=== PATIENT | female | born 1940 | race Caucasian/White ===

== ENCOUNTER 2024-01-02 08:08 | Inpatient (IN) | payer BC, MEDICARE, OTHER ==
[2023-12-26 10:30] LABS: BILIRUBIN,URINE NEGATIVE (Neg); CLARITY,URINE CLEAR (Clear); COLOR,URINE YELLOW (Yellow); GLUCOSE, URINE NEGATIVE (Neg); KETONES,URINE NEGATIVE (Neg); LEUKOCYTE ESTERASE ,URINE SMALL (Neg); NITRITES, URINE NEGATIVE (Neg); OCCULT BLOOD,URINE NEGATIVE (Neg); PH,URINE 6.5 (4.8-8.0); PROTEIN,URINE NEGATIVE (Neg); UROBILINOGEN,URINE 0.2 E.U/dL (0.2-1.0)
[2023-12-26 10:36] LABS: BASOPHILS # (AUTO) 0.1 X10'3 (0-0.2); BASOPHILS % (AUTO) 1.3 % (0-1); EOSINOPHILS # (AUTO) 0.2 X10'3 (0-0.9); LYMPHOCYTES # (AUTO) 2.4 X10'3 (1.1-4.8); LYMPHOCYTES % (AUTO) 23.9 % (21-51); MEAN CORPUSCULAR HEMOGLOBIN 28.8 PG (27.0-31.0); MEAN CORPUSCULAR VOLUME 87.4 FL (78-98); MEAN PLATELET VOLUME 7.1 FL (7.4-10.4); MONOCYTES # (AUTO) 0.8 X10'3 (0-0.9); MONOCYTES % (AUTO) 7.7 % (2-12); NEUTROPHILS # (AUTO) 6.6 X10'3 (1.8-7.7); NEUTROPHILS % (AUTO) 65.1 % (42-75); PRE OP HEMATOCRIT 50.3 % (35.0-45.0); PRE OP HEMOGLOBIN 16.6 g/dL (12.0-16.0); PRE OP PLATELET COUNT 372 X10'3 (140-440); PRE OP WHITE BLOOD COUNT 10.2 10'3 (4.8-10.8); RED BLOOD COUNT 5.76 X10'6 (4.20-5.60); RED CELL DISTRIBUTION WIDTH 14.7 % (11.5-14.5)
[2023-12-26 10:48] LABS: UA COLLECTION TYPE CLN CATCH MIDSTREAM
[2023-12-26 10:49] LABS: BACTERIA,URINE 1+ /HPF (Neg); MUCUS STRANDS FEW /LPF (Neg); SQUAMOUS EPITHELIAL CELL,UR FEW /LPF (FEW)
[2023-12-26 11:02] LABS: ALBUMIN/GLOBULIN RATIO 1.1 (1.1-1.5); ALKALINE PHOSPHATASE 78 IU/L (46-116); BLOOD UREA NITROGEN 13 MG/DL (7-18); BUN/CREATININE RATIO 19.4 (10.0-20.0); CALCIUM 9.1 MG/DL (8.5-10.1); CHLORIDE 101 MMOL/L (99-107); CREATININE 0.67 MG/DL (0.40-0.90); PRE OP ALT 11 U/L (30-65); PRE OP ANION GAP 3 (8-16); PRE OP AST 18 U/L (10-37); PRE OP BILIRUB, TOTAL 0.8 MG/DL (0.0-1.0); PRE OP GLUCOSE 126 MG/DL (70-104); PRE OP POTASSIUM 4.1 MMOL/L (3.4-5.1); PRE OP SODIUM 136 MMOL/L (135-145); THYROID STIMULATING HORMONE 1.55 ulU/ml (0.34-4.50); TOTAL CARBON DIOXIDE 31.7 MMOL/L (24-32); TOTAL PROTEIN 7.7 G/DL (6.4-8.2); eGFR 84 ML/MIN
[2023-12-26 11:13] LABS: HEMOGLOBIN A1C 6.7 % (4.5-6.2)
[2023-12-26 11:26] LABS: PRE OP PROTIME 10.9 SECONDS (9.0-12.0)
[2023-12-29 07:18] LABS: ABG HCO3 23.4 mmol/L (21.0-28.0); ABG OXYGEN SATURATION 93.2 % (94.0-98.0); ABG PCO2 (T) 35.2 mmHg (32.0-45.0); ABG PH (T) 7.441 (7.350-7.450); ABG PO2 (T) 69.1 mmHg (83.0-108.0); ALLEN'S TEST POSITIVE; FCOHb 0.4 % (0.5-1.5); FHHb 6.8 % (0.0-5.0); FMetHb 0.1 % (0.0-1.5); FO2Hb 92.7 % (94.0-98.0); MODE ROOM AIR; TOTAL HEMOGLOBIN 17.2 G/dl (12.0-16.0)
[2024-01-02] VITALS (15 sets, daily range): BP systolic 112–150; BP diastolic 42–102; PULSE 61–90; RESP 13–17; TEMP 98; O2SAT 92–99
[~2024-01-02] VITALS: Ht 157.5 cm; Wt 78.0 kg
[2024-01-02] MEDS: vancomycin/NS 1 GM in NS 250 ML IV ONE (05:30)
[~2024-01-02 08:08] MED LIST: BIFI10.5 PO; CALC-1215 PO; CYAN500T71 PO; GREE250C PO; KEN0.1O TOP; LEVO75TA57 PO; LORA-949 PO; METF750T46 PO; SIMV-42 PO
[2024-01-02] MEDS: famotidine 20mg tablet PO ONE (09:37)
[2024-01-02] MEDS: ringers solution, lacted 1,000 ML IV SCH (09:42)
[2024-01-02] MEDS: BUPIVAcaine 2.5mg/ml inj 50ml vial (contains preservative) ONE ×2 (12:46→12:50)
[2024-01-02] MEDS: NORepinephrine 8mg/ 250ml NS 250 ML IV ONE (12:46)
[2024-01-02] MEDS: BUPIVACAINE liposomal/PF 13.3 MG/ML vial IM ONE ×2 (12:47→12:50)
[2024-01-02] MEDS: diphenhydrAMINE 50 mg/ml inj ONE (13:19)
[2024-01-02] MEDS ORDERED: sevoflurane 250ml liquid IH ONE (14:46)
[2024-01-02] MEDS ORDERED: midazolam 1 mg/ML 2ml injection ONE (14:48)
[2024-01-02] MEDS ORDERED: fentaNYL /PF 50mcg/ml 5ml ampule ONE (14:49)
[2024-01-02] MEDS ORDERED: propofol inj 20 ML IV ONE (14:53)
[2024-01-02] MEDS ORDERED: albumin (Human) 5% 250ml 250 ML IV ONE ×2 (15:31→18:06)
[2024-01-02] MEDS ORDERED: acetaminophen 1,000mg/100ml IV 100 ML IV ONE (17:28)
[2024-01-02] MEDS ORDERED: dexamethasone sod phosphate 4mg/ml inj. ONE (17:28)
[2024-01-02] MEDS: BUPIVAcaine 2.5mg/ml inj 50ml vial (contains preservative) IJ ONE (18:10)
[2024-01-02] MEDS ORDERED: sugammadex 200mg/2ml injection IV ONE (18:31)
[2024-01-02] MEDS ORDERED: metoclopramide 5 mg/ml inj IV PRN (18:40)
[2024-01-02] MEDS ORDERED: albuterol 2.5 MG/3 ML nebule NEB PRN (18:40)
[2024-01-02] MEDS ORDERED: HYDROcodone/acetaminophen 10/325mg tab PO PRN (18:40)
[2024-01-02] MEDS: INDOCYANINE GREEN 25 MG/10 ML VIAL IV ONE ×2 (18:46→18:47)
[2024-01-02] MEDS: ketorolac trometh 30MG/ML vial 30 MG/ML VIAL ONE (18:46)
[2024-01-02] MEDS: ROPIVAcaine 0.5% (5mg/ml) 30ml vial ONE (18:47)
[2024-01-02] MEDS: ketorolac trometh 15mg/ml vial 15 MG/ML ML IV SCH (18:48)
[2024-01-02 18:57] LABS: ABG BASE EXCESS -6.1 mmol/L (-2.0-3.0); ABG HCO3 21.6 mmol/L (21.0-28.0); ABG OXYGEN SATURATION 97.1 % (94.0-98.0); ABG PCO2 (T) 46.7 mmHg (32.0-45.0); ABG PH (T) 7.274 (7.350-7.450); ABG PO2 (T) 93.6 mmHg (83.0-108.0); FCOHb 0.7 % (0.5-1.5); FHHb 2.9 % (0.0-5.0); FMetHb 0.1 % (0.0-1.5); FO2Hb 96.3 % (94.0-98.0); PATIENT TEMPERATURE 35.2; TOTAL HEMOGLOBIN 16.5 G/dl (12.0-16.0)
[2024-01-02] MEDS ORDERED: vancomycin/NS 1 GM ADD-VANTAGE 250 ML IV SCH (20:00)
[2024-01-02] MEDS: gabapentin 300mg capsule PO SCH (20:00)
[2024-01-02] MEDS: linezolid 600mg/300ml PREMIX 300 ML IV SCH (20:37)
[2024-01-02] MEDS: potassium cl 20mEq in 1/2 NS 1,000 ML IV SCH (20:37)
[2024-01-02 20:49] LABS: ABG BASE EXCESS -4.4 mmol/L (-2.0-3.0); ABG HCO3 22.2 mmol/L (21.0-28.0); ABG OXYGEN SATURATION 93.6 % (94.0-98.0); ABG PCO2 (T) 43.2 mmHg (32.0-45.0); ABG PH (T) 7.321 (7.350-7.450); FCOHb 0.9 % (0.5-1.5); FHHb 6.3 % (0.0-5.0); FMetHb 0.1 % (0.0-1.5); FO2Hb 92.7 % (94.0-98.0); PATIENT TEMPERATURE 35.4; TOTAL HEMOGLOBIN 16.3 G/dl (12.0-16.0)
[2024-01-02] MEDS: morphine 2 MG/ML inj. syringe IV PRN (22:08)
[2024-01-03] VITALS (23 sets, daily range): BP systolic 92–122; BP diastolic 44–57; PULSE 54–71; RESP 9–19; O2SAT 93–98
[2024-01-03 02:38] LABS: BASOPHILS % (AUTO) 0.2 % (0-1); EOSINOPHILS % (AUTO) 0 % (0-6); HEMATOCRIT 46.8 % (35.0-45.0); HEMOGLOBIN 15.1 g/dl (12.0-16.0); LYMPHOCYTES # (AUTO) 0.7 X10'3 (1.1-4.8); LYMPHOCYTES % (AUTO) 5.9 % (21-51); MEAN CORPUSCULAR HEMOGLOBIN 28.3 PG (27.0-31.0); MEAN CORPUSCULAR HGB CONC 32.2 g/dL (33.0-36.5); MEAN CORPUSCULAR VOLUME 87.8 FL (78-98); MEAN PLATELET VOLUME 7.5 FL (7.4-10.4); MONOCYTES # (AUTO) 0.5 X10'3 (0-0.9); MONOCYTES % (AUTO) 4.2 % (2-12); NEUTROPHILS # (AUTO) 11.3 X10'3 (1.8-7.7); NEUTROPHILS % (AUTO) 89.7 % (42-75); PLATELET COUNT 322 X10'3 (140-440); RED BLOOD COUNT 5.33 X10'6 (4.20-5.60); RED CELL DISTRIBUTION WIDTH 14.8 % (11.5-14.5); WHITE BLOOD COUNT 12.6 X10'3 (4.5-11.0)
[2024-01-03 02:56] LABS: ALANINE AMINOTRANSFERASE 24 U/L (12-78); ALBUMIN 3.4 G/DL (3.4-5.0); ALBUMIN/GLOBULIN RATIO 1.2 (1.1-1.5); ALKALINE PHOSPHATASE 64 IU/L (46-116); ANION GAP 5 (8-16); ASPARTATE AMINO TRANSFERASE 27 U/L (10-37); BILIRUBIN,TOTAL 0.8 MG/DL (0.1-1.0); BLOOD UREA NITROGEN 11 MG/DL (7-18); BUN/CREATININE RATIO 15.5 (10.0-20.0); CALCIUM 7.7 MG/DL (8.5-10.1); CHLORIDE 104 MMOL/L (99-107); CREATININE 0.71 MG/DL (0.40-0.90); GLUCOSE 204 MG/DL (70-104); MAGNESIUM 1.5 MG/DL (1.5-2.4); PHOSPHORUS 4.3 MG/DL (2.3-4.5); POTASSIUM 4.4 MMOL/L (3.5-5.1); SODIUM 135 MMOL/L (135-145); TOTAL CARBON DIOXIDE 25.9 MMOL/L (24-32); TOTAL PROTEIN 6.2 G/DL (6.4-8.2); eCRCL 47 ML/MIN; eGFR 79 ML/MIN
[2024-01-03] MEDS: HYDROcodone/acetaminophen 10/325mg tab PO PRN (05:32)
[2024-01-03] MEDS: furosemide 20 MG/2 ML vial IV ONE (12:17)
[2024-01-03] MEDS: magnesium sulf-water 4G/100mL 100 ML IV ONE (13:25)
[2024-01-03] MEDS: ondansetron/PF 4mg/2ml inj IV PRN (15:10)
[2024-01-03] MEDS ORDERED: DEXTROSE 15 GM of carb/4 tabs (each vial/BOTTLE has 4 tablets) PO PRN ×2 (16:30)
[2024-01-03] MEDS ORDERED: dextrose 50%-water 50ml dispensing syringe IV PRN ×2 (16:30)
[2024-01-03] MEDS ORDERED: glucagon, human recombinant 1mg kit SUBCUT PRN (16:30)
[2024-01-03] MEDS: INSULIN LISPRO 100 UNIT/ML INSULN.PEN MULTI-DOSE SQ SCH (17:00)
[2024-01-03] MEDS: magnesium oxide 400mg tablet PO SCH (20:01)
[2024-01-04] VITALS (27 sets, daily range): BP systolic 89–124; BP diastolic 41–72; PULSE 54–76; RESP 9–18; O2SAT 88–96
[2024-01-04 06:43] LABS: ALANINE AMINOTRANSFERASE 23 U/L (12-78); ALBUMIN 2.9 G/DL (3.4-5.0); ALKALINE PHOSPHATASE 56 IU/L (46-116); ANION GAP 4 (8-16); ASPARTATE AMINO TRANSFERASE 24 U/L (10-37); BILIRUBIN,TOTAL 0.5 MG/DL (0.1-1.0); BLOOD UREA NITROGEN 13 MG/DL (7-18); BUN/CREATININE RATIO 19.1 (10.0-20.0); CALCIUM 7.9 MG/DL (8.5-10.1); CHLORIDE 100 MMOL/L (99-107); CREATININE 0.68 MG/DL (0.40-0.90); GLUCOSE 128 MG/DL (70-104); MAGNESIUM 2.4 MG/DL (1.5-2.4); PHOSPHORUS 3.1 MG/DL (2.3-4.5); POTASSIUM 4.4 MMOL/L (3.5-5.1); SODIUM 132 MMOL/L (135-145); TOTAL CARBON DIOXIDE 27.8 MMOL/L (24-32); TOTAL PROTEIN 5.7 G/DL (6.4-8.2); eCRCL 50 ML/MIN; eGFR 83 ML/MIN
[2024-01-04 06:45] LABS: BASOPHILS # (AUTO) 0.1 X10'3 (0-0.2); BASOPHILS % (AUTO) 0.4 % (0-1); EOSINOPHILS # (AUTO) 0.2 X10'3 (0-0.9); EOSINOPHILS % (AUTO) 1.5 % (0-6); HEMATOCRIT 42.8 % (35.0-45.0); HEMOGLOBIN 13.9 g/dl (12.0-16.0); LYMPHOCYTES # (AUTO) 1.2 X10'3 (1.1-4.8); LYMPHOCYTES % (AUTO) 9.6 % (21-51); MEAN CORPUSCULAR HEMOGLOBIN 28.7 PG (27.0-31.0); MEAN CORPUSCULAR HGB CONC 32.6 g/dL (33.0-36.5); MEAN CORPUSCULAR VOLUME 88.2 FL (78-98); MEAN PLATELET VOLUME 7.6 FL (7.4-10.4); MONOCYTES # (AUTO) 0.8 X10'3 (0-0.9); MONOCYTES % (AUTO) 6.6 % (2-12); NEUTROPHILS # (AUTO) 10.3 X10'3 (1.8-7.7); NEUTROPHILS % (AUTO) 81.9 % (42-75); PLATELET COUNT 318 X10'3 (140-440); RED BLOOD COUNT 4.85 X10'6 (4.20-5.60); RED CELL DISTRIBUTION WIDTH 14.8 % (11.5-14.5); WHITE BLOOD COUNT 12.5 X10'3 (4.5-11.0)
[2024-01-04] MEDS: acetaminophen 325mg tablet PO PRN (14:14)
[2024-01-04] MEDS: traMADol 50MG tablet PO PRN (19:38)
[2024-01-04] MEDS: magnesium hydroxide 30ml (MOM) UD suspension PO SCH (19:40)
[2024-01-05] VITALS (31 sets, daily range): BP systolic 61–133; BP diastolic 36–61; PULSE 50–77; RESP 11–18; O2SAT 88–98
[2024-01-05 05:41] LABS: BASOPHILS # (AUTO) 0.1 X10'3 (0-0.2); BASOPHILS % (AUTO) 0.5 % (0-1); EOSINOPHILS # (AUTO) 0.3 X10'3 (0-0.9); EOSINOPHILS % (AUTO) 3.2 % (0-6); HEMATOCRIT 43.2 % (35.0-45.0); HEMOGLOBIN 14.1 g/dl (12.0-16.0); LYMPHOCYTES # (AUTO) 1.6 X10'3 (1.1-4.8); LYMPHOCYTES % (AUTO) 14.1 % (21-51); MEAN CORPUSCULAR HEMOGLOBIN 28.8 PG (27.0-31.0); MEAN CORPUSCULAR HGB CONC 32.7 g/dL (33.0-36.5); MEAN CORPUSCULAR VOLUME 88.1 FL (78-98); MEAN PLATELET VOLUME 7.6 FL (7.4-10.4); MONOCYTES # (AUTO) 0.8 X10'3 (0-0.9); MONOCYTES % (AUTO) 7.7 % (2-12); NEUTROPHILS # (AUTO) 8.2 X10'3 (1.8-7.7); NEUTROPHILS % (AUTO) 74.5 % (42-75); PLATELET COUNT 351 X10'3 (140-440); RED CELL DISTRIBUTION WIDTH 15.2 % (11.5-14.5)
[2024-01-05 05:48] LABS: ALANINE AMINOTRANSFERASE 27 U/L (12-78); ALBUMIN 2.8 G/DL (3.4-5.0); ALBUMIN/GLOBULIN RATIO 0.9 (1.1-1.5); ALKALINE PHOSPHATASE 62 IU/L (46-116); ANION GAP 3 (8-16); ASPARTATE AMINO TRANSFERASE 28 U/L (10-37); BILIRUBIN,TOTAL 0.5 MG/DL (0.1-1.0); BLOOD UREA NITROGEN 15 MG/DL (7-18); BUN/CREATININE RATIO 19.7 (10.0-20.0); CHLORIDE 100 MMOL/L (99-107); CREATININE 0.76 MG/DL (0.40-0.90); GLUCOSE 136 MG/DL (70-104); MAGNESIUM 1.9 MG/DL (1.5-2.4); PHOSPHORUS 2.4 MG/DL (2.3-4.5); SODIUM 131 MMOL/L (135-145); TOTAL CARBON DIOXIDE 27.9 MMOL/L (24-32); TOTAL PROTEIN 5.8 G/DL (6.4-8.2); eCRCL 44 ML/MIN; eGFR 73 ML/MIN
[2024-01-05 05:57] LABS: POTASSIUM 5.1 MMOL/L (3.5-5.1)
[2024-01-05] MEDS: HYDROmorphone inj. 0.5 MG/0.5 ML DISP.SYRIN IV PRN (21:51)
[2024-01-06] VITALS (22 sets, daily range): BP systolic 115–133; BP diastolic 50–96; PULSE 53–90; RESP 10–22; TEMP 96.9–98.3; O2SAT 90–98
[2024-01-06] MEDS: ondansetron/PF 4mg/2ml inj IV PRN (04:27)
[2024-01-06 06:03] LABS: BASOPHILS % (AUTO) 0.4 % (0-1); EOSINOPHILS # (AUTO) 0.4 X10'3 (0-0.9); EOSINOPHILS % (AUTO) 3.4 % (0-6); HEMATOCRIT 44.4 % (35.0-45.0); HEMOGLOBIN 14.7 g/dl (12.0-16.0); LYMPHOCYTES # (AUTO) 1.2 X10'3 (1.1-4.8); LYMPHOCYTES % (AUTO) 10.4 % (21-51); MEAN CORPUSCULAR HEMOGLOBIN 28.9 PG (27.0-31.0); MEAN CORPUSCULAR HGB CONC 33.1 g/dL (33.0-36.5); MEAN CORPUSCULAR VOLUME 87.3 FL (78-98); MEAN PLATELET VOLUME 7.5 FL (7.4-10.4); MONOCYTES # (AUTO) 0.8 X10'3 (0-0.9); MONOCYTES % (AUTO) 6.9 % (2-12); NEUTROPHILS # (AUTO) 9.1 X10'3 (1.8-7.7); NEUTROPHILS % (AUTO) 78.9 % (42-75); PLATELET COUNT 360 X10'3 (140-440); RED BLOOD COUNT 5.09 X10'6 (4.20-5.60); RED CELL DISTRIBUTION WIDTH 15.1 % (11.5-14.5); WHITE BLOOD COUNT 11.6 X10'3 (4.5-11.0)
[2024-01-06 06:24] LABS: ALANINE AMINOTRANSFERASE 42 U/L (12-78); ALBUMIN 2.8 G/DL (3.4-5.0); ALBUMIN/GLOBULIN RATIO 0.8 (1.1-1.5); ALKALINE PHOSPHATASE 83 IU/L (46-116); ANION GAP 2 (8-16); ASPARTATE AMINO TRANSFERASE 40 U/L (10-37); BILIRUBIN,TOTAL 0.9 MG/DL (0.1-1.0); BLOOD UREA NITROGEN 8 MG/DL (7-18); BUN/CREATININE RATIO 17.8 (10.0-20.0); CALCIUM 8.1 MG/DL (8.5-10.1); CHLORIDE 100 MMOL/L (99-107); CREATININE 0.45 MG/DL (0.40-0.90); GLUCOSE 126 MG/DL (70-104); MAGNESIUM 1.9 MG/DL (1.5-2.4); POTASSIUM 4.6 MMOL/L (3.5-5.1); SODIUM 134 MMOL/L (135-145); TOTAL CARBON DIOXIDE 31.7 MMOL/L (24-32); TOTAL PROTEIN 6.2 G/DL (6.4-8.2); eCRCL 75 ML/MIN; eGFR > 90 ML/MIN
[2024-01-06] MEDS ORDERED: proCHLORperazine 10 MG/2 ml inj IV PRN (10:20)
[2024-01-06] MEDS: gabapentin 300mg capsule PO SCH (12:35)
[2024-01-06] MEDS: furosemide 40mg/4ml inj IV ONE (12:40)
[2024-01-06] MEDS: morphine 4 MG/ML inj SYRINge IV PRN (19:30)
[2024-01-06] MEDS: enoxaparin 40mg/0.4ml syringe SUBCUT SCH (21:13)
[2024-01-07] VITALS (8 sets, daily range): BP systolic 100–127; BP diastolic 54–69; PULSE 71–85; RESP 14–16; TEMP 97.3–97.7; O2SAT 90–95
[2024-01-07 07:22] LABS: BASOPHILS # (AUTO) 0.1 X10'3 (0-0.2); BASOPHILS % (AUTO) 0.4 % (0-1); EOSINOPHILS # (AUTO) 0.5 X10'3 (0-0.9); EOSINOPHILS % (AUTO) 3.9 % (0-6); HEMATOCRIT 45.1 % (35.0-45.0); HEMOGLOBIN 14.8 g/dl (12.0-16.0); LYMPHOCYTES # (AUTO) 1.5 X10'3 (1.1-4.8); LYMPHOCYTES % (AUTO) 11.4 % (21-51); MEAN CORPUSCULAR HEMOGLOBIN 28.4 PG (27.0-31.0); MEAN CORPUSCULAR HGB CONC 32.8 g/dL (33.0-36.5); MEAN CORPUSCULAR VOLUME 86.7 FL (78-98); MEAN PLATELET VOLUME 7.3 FL (7.4-10.4); MONOCYTES % (AUTO) 7.7 % (2-12); NEUTROPHILS # (AUTO) 9.9 X10'3 (1.8-7.7); NEUTROPHILS % (AUTO) 76.6 % (42-75); PLATELET COUNT 338 X10'3 (140-440); WHITE BLOOD COUNT 12.9 X10'3 (4.5-11.0)
[2024-01-07 08:19] LABS: ALANINE AMINOTRANSFERASE 37 U/L (12-78); ALBUMIN 2.9 G/DL (3.4-5.0); ALBUMIN/GLOBULIN RATIO 0.9 (1.1-1.5); ALKALINE PHOSPHATASE 82 IU/L (46-116); ANION GAP 5 (8-16); ASPARTATE AMINO TRANSFERASE 27 U/L (10-37); BLOOD UREA NITROGEN 12 MG/DL (7-18); BUN/CREATININE RATIO 19.4 (10.0-20.0); CALCIUM 8.4 MG/DL (8.5-10.1); CHLORIDE 96 MMOL/L (99-107); CREATININE 0.62 MG/DL (0.40-0.90); GLUCOSE 106 MG/DL (70-104); MAGNESIUM 2.2 MG/DL (1.5-2.4); PHOSPHORUS 3.2 MG/DL (2.3-4.5); POTASSIUM 4.3 MMOL/L (3.5-5.1); SODIUM 132 MMOL/L (135-145); TOTAL CARBON DIOXIDE 30.8 MMOL/L (24-32); TOTAL PROTEIN 6.3 G/DL (6.4-8.2); eCRCL 54 ML/MIN; eGFR > 90 ML/MIN
[2024-01-07] MEDS: lactose-reduced food (Ensure Enlive) - 237ml bottle PO SCH (18:00)
[2024-01-08] VITALS (7 sets, daily range): BP systolic 91–137; BP diastolic 49–72; PULSE 64–87; RESP 12–24; TEMP 97.6–97.9; O2SAT 93–99
[2024-01-08] MEDS ORDERED: [UNRECOGNIZED DRUG - OTHER] PO SCH (08:00)
[2024-01-08 08:04] LABS: BASOPHILS # (AUTO) 0.1 X10'3 (0-0.2); BASOPHILS % (AUTO) 0.5 % (0-1); EOSINOPHILS # (AUTO) 0.4 X10'3 (0-0.9); EOSINOPHILS % (AUTO) 3.2 % (0-6); HEMATOCRIT 44.5 % (35.0-45.0); HEMOGLOBIN 14.7 g/dl (12.0-16.0); LYMPHOCYTES # (AUTO) 1.4 X10'3 (1.1-4.8); LYMPHOCYTES % (AUTO) 10.6 % (21-51); MEAN CORPUSCULAR HEMOGLOBIN 28.8 PG (27.0-31.0); MEAN CORPUSCULAR HGB CONC 33.1 g/dL (33.0-36.5); MEAN CORPUSCULAR VOLUME 86.9 FL (78-98); MEAN PLATELET VOLUME 6.8 FL (7.4-10.4); MONOCYTES # (AUTO) 1.2 X10'3 (0-0.9); NEUTROPHILS # (AUTO) 10.3 X10'3 (1.8-7.7); NEUTROPHILS % (AUTO) 76.7 % (42-75); PLATELET COUNT 350 X10'3 (140-440); RED BLOOD COUNT 5.13 X10'6 (4.20-5.60); RED CELL DISTRIBUTION WIDTH 14.5 % (11.5-14.5); WHITE BLOOD COUNT 13.4 X10'3 (4.5-11.0)
[2024-01-08 08:46] LABS: ANION GAP 4 (8-16); BLOOD UREA NITROGEN 15 MG/DL (7-18); BUN/CREATININE RATIO 25.9 (10.0-20.0); CALCIUM 8.3 MG/DL (8.5-10.1); CHLORIDE 96 MMOL/L (99-107); CREATININE 0.58 MG/DL (0.40-0.90); GLUCOSE 126 MG/DL (70-104); MAGNESIUM 2.2 MG/DL (1.5-2.4); PHOSPHORUS 3.4 MG/DL (2.3-4.5); POTASSIUM 4.3 MMOL/L (3.5-5.1); SODIUM 133 MMOL/L (135-145); TOTAL CARBON DIOXIDE 33.5 MMOL/L (24-32); TOTAL PROTEIN 6.2 G/DL (6.4-8.2); eCRCL 58 ML/MIN; eGFR > 90 ML/MIN
[2024-01-08 08:47] LABS: ALANINE AMINOTRANSFERASE 36 U/L (12-78); ALBUMIN 2.7 G/DL (3.4-5.0); ALBUMIN/GLOBULIN RATIO 0.8 (1.1-1.5); ALKALINE PHOSPHATASE 78 IU/L (46-116); ASPARTATE AMINO TRANSFERASE 27 U/L (10-37)
[2024-01-08] MEDS: lactobacillus rhamnosus 10,000 MMU CELLS/CAPSULE PO SCH (08:50)
[2024-01-08] MEDS: loratadine 10mg tablet PO SCH (08:50)
[2024-01-08] MEDS: cyanocobalamin 500mcg tablet PO SCH (08:51)
[2024-01-08] MEDS: levoTHYROXINE 75mcg tablet PO SCH (08:51)
[2024-01-08] MEDS: oxyCODONE/APAP 5-325mg tablet PO PRN (08:53)
[2024-01-08] MEDS: calcium carbonate/vitamin D3 tablet PO SCH (20:15)
[2024-01-08] MEDS: simvastatin 20mg tablet PO SCH (20:16)
[2024-01-08] MEDS: linezolid 600mg tablet PO SCH (20:16)
[2024-01-09] VITALS (8 sets, daily range): BP systolic 102–124; BP diastolic 55–62; PULSE 70–89; RESP 15–22; TEMP 97.6–98.2; O2SAT 94–98
[2024-01-10 02:00] VITALS: BP 118/67; PULSE 80; RESP 16; TEMP 97.8; O2SAT 94
[2024-01-10 07:00] VITALS: RESP 16; O2SAT 96
[2024-01-10 09:43] VITALS: BP 121/78; PULSE 80; RESP 16; TEMP 97.1; O2SAT 96
[2024-01-10 10:08] VITALS: RESP 16; O2SAT 96
== END 2024-01-10 12:07 | disposition home or self-care (01) | DRG 164 ==
LOC: PAS IN 08:08 → CICU 2S 19:19 → PCU 3S 01-06 14:29
PROVIDERS: ADMIT Surgery; ATTEND Surgery
PROC: 0BBD4ZZ Excision of Right Middle Lung Lobe, Percutaneous Endoscopic Approach (ICD-10-PCS; 2024-01-02)
PROC: 0BBF4ZZ Excision of Right Lower Lung Lobe, Percutaneous Endoscopic Approach (ICD-10-PCS; 2024-01-02)
PROC: 07B74ZZ Excision of Thorax Lymphatic, Percutaneous Endoscopic Approach (ICD-10-PCS; 2024-01-02)
PROC: 8E0W4CZ Robotic Assisted Procedure of Trunk Region, Percutaneous Endoscopic Approach (ICD-10-PCS; 2024-01-02)
PROC: 0BTC4ZZ Resection of Right Upper Lung Lobe, Percutaneous Endoscopic Approach (ICD-10-PCS; principal; 2024-01-02 14:46)
DX: C34.11 Malignant neoplasm of upper lobe, right bronchus or lung (principal); J93.82 Other air leak; R91.8 Other nonspecific abnormal finding of lung field; Z79.899 Other long term (current) drug therapy
CPT/HCPCS: 36415; 36600; 71045; 80053; 81001; 82803; 82948; 83036; 83735; 84100; 84443; 84484; 85018; 85025; 85610; 85730; 86885; 86900; 86901; 86920; 87081; 87088; 88305; 88309; 88331; 93005; 93306; 94760; 97110; 97116; 97161; 97530; A4615; A4618; A6253; A6258; A6449; A7000; A7048; C1758; C9250; C9290; G0378; J0131; J1100; J1171; J1200; J1650; J1815; J1885; J1940; J2020; J2250; J2270; J2405; J2704; J2795; J3010; J3370; J3475; J3480; J3490; J7120; P9045